=== PATIENT | female | born 1995 ===

== ENCOUNTER 2017-08-23 13:45 | Inpatient (IN) | payer OTHER ==
[~2017-08-23] VITALS: Ht 160 cm; Wt 78.5 kg
[2017-08-28] MEDS ORDERED: PRENATAL FORMU1 EAC1 PO (11:08)
== END 2017-08-30 17:47 | DRG 766 ==
LOC: O/R 08-28 10:43 → OB/GYN 08-28 10:43 → LDR 08-28 13:45 → OB/GYN 08-28 16:22
PROVIDERS: Obstetrics & Gynecology
PROC: 4A1HXCZ Monitoring of Products of Conception, Cardiac Rate, External Approach (ICD-10-PCS; 2017-08-28)
PROC: 4A033R1 Measurement of Arterial Saturation, Peripheral, Percutaneous Approach (ICD-10-PCS; 2017-08-28)
PROC: 10D00Z1 Extraction of Products of Conception, Low, Open Approach (ICD-10-PCS; principal; 2017-08-28 14:15)
DX: O34.211 Maternal care for low transverse scar from previous cesarean delivery (principal); Z3A.39 39 weeks gestation of pregnancy; Z37.0 Single live birth

== ENCOUNTER 2021-03-21 07:00 | Inpatient (IN) | payer OTHER ==
[~2021-03-21] VITALS: Ht 160 cm; Wt 2.7 kg
[~2021-03-21 07:00] MED LIST: PRENATAL FORMU1 EAC1 PO
== END 2021-03-25 14:56 | disposition home or self-care (01) | DRG 785 ==
LOC: OB/GYN 03-22 07:00 → O/R 03-22 12:06 → PED 03-22 12:06
PROVIDERS: ADMIT Obstetrics & Gynecology; ATTEND Obstetrics & Gynecology
PROC: 0UB70ZZ Excision of Bilateral Fallopian Tubes, Open Approach (ICD-10-PCS; 2021-03-22)
PROC: 4A1HXFZ Monitoring of Products of Conception, Cardiac Rhythm, External Approach (ICD-10-PCS; 2021-03-22)
PROC: 10D00Z2 Extraction of Products of Conception, Extraperitoneal, Open Approach (ICD-10-PCS; principal; 2021-03-22 07:00)
DX: O34.211 Maternal care for low transverse scar from previous cesarean delivery (principal); Z30.2 Encounter for sterilization; Z37.0 Single live birth; Z3A.39 39 weeks gestation of pregnancy